=== PATIENT | female | born 1945 | race Caucasian/White ===

== ENCOUNTER 2022-07-25 15:32 | Inpatient (IN) | payer MEDICARE ==
[~2022-07-25] VITALS: Ht 167.6 cm; Wt 56.9 kg
[2022-07-25 17:20] LABS: BASOPHILS % (AUTO) 0.3 % (0.0-2.0); EOSINOPHILS % (AUTO) 1.1 % (1.0-6.0); HEMATOCRIT 44.8 % (36-46); HEMOGLOBIN 14.8 g/dL (12.0-16.0); LYMPHOCYTES # (AUTO) 0.9 K/uL (1.0-4.8); LYMPHOCYTES % (AUTO) 22.9 % (22.0-44.0); MEAN CORPUSCULAR HEMOGLOBIN 31.2 pg (26.0-34.0); MEAN CORPUSCULAR VOLUME 95 fL (80-100); MONOCYTES # (AUTO) 0.3 K/uL (0.1-1.0); MONOCYTES % (AUTO) 8.5 % (2.0-9.0); NEUTROPHILS # (AUTO) 2.7 K/uL (1.8-7.7); NEUTROPHILS % (AUTO) 67.2 % (40.0-70.0); PLATELET COUNT (AUTO) 149 K/uL (150-450); RED BLOOD CELL COUNT(AUTO) 4.73 MIL/uL (4.00-5.20); RED CELL DISTRIBUTION WIDTH 13.2 % (11.5-14.5)
[2022-07-25 17:39] LABS: ANION GAP 7 mmol/L (8-16); CALCIUM, TOTAL 8.8 mg/dL (8.8-10.5); CARBON DIOXIDE 29 mmol/L (22-29); CHLORIDE 106 mmol/L (98-107); CREATININE 0.72 mg/dL (0.60-1.30); GLUCOSE,RANDOM 108 mg/dL (70-110); POTASSIUM 4.1 mmol/L (3.5-5.1); SODIUM SERUM 142 mmol/L (136-145); UREA NITROGEN, BLOOD 36 mg/dL (7-18)
[2022-07-25 17:40] LABS: GLOMERULAR FILTR. RATE CALC > 60 mL/min (>60)
[2022-07-25 17:42] LABS: B-TYPE NATRIURETIC PEPTIDE 72 pg/mL (0-100)
[2022-07-25 17:45] LABS: ALANINE AMINOTRANSFERASE 25 U/L (12-78); ALBUMIN 3.8 g/dL (3.4-5.0); ALKALINE PHOSPHATASE 119 U/L (46-116); ASPARTATE AMINOTRANSFERASE 21 U/L (15-37); BILIRUBIN,TOTAL 0.1 mg/dL (0.1-1.0); LIPASE 520 U/L (73-393); TOTAL PROTEIN, SERUM 7.1 g/dL (6.4-8.2)
[2022-07-25] MEDS ORDERED: MAGNESIUM HYDROXIDE SUSPENSION 30 ML UDCUP PO PRN (19:15)
[2022-07-25] MEDS ORDERED: ACETAMINOPHEN 325 MG TABLET PO PRN (19:15)
[2022-07-25] MEDS ORDERED: ONDANSETRON HCL 4 MG/2 ML VIAL IVP PRN (19:15)
[2022-07-25] MEDS ORDERED: NITROGLYCERIN 2% (1 GM=INCH) OINTMENT PACKET TP ONE (19:45)
[2022-07-25] MEDS: METOPROLOL TARTRATE 25 MG TABLET PO SCH (21:00)
[2022-07-25 21:58] VITALS: BP 160/81
[2022-07-25] MEDS: HEPARIN SODIUM,PORCINE 5,000 UNITS/ML VIAL SQ SCH (23:33)
[2022-07-26 00:03] VITALS: BP 145/73
[2022-07-26 05:06] VITALS: BP 129/88
[2022-07-26 07:11] VITALS: BP 155/70
[2022-07-26] MEDS: HEPARIN SODIUM,PORCINE 5,000 UNITS/ML VIAL SQ SCH (08:00)
[2022-07-26] MEDS: METOPROLOL TARTRATE 25 MG TABLET PO SCH (09:00)
[2022-07-26] MEDS ORDERED: FAMOTIDINE 20 MG TABLET PO SCH (09:00)
[2022-07-26] MEDS ORDERED: AMLO-257 PO (09:45)
[2022-07-26] MEDS ORDERED: FAMO20 PO (09:45)
[2022-07-26 11:29] VITALS: BP 138/78
[2022-07-26 16:15] VITALS: BP 145/95
== END 2022-07-26 11:25 | disposition home or self-care (01) | DRG 391 ==
LOC: EMS 15:48 → 5S 19:39
PROVIDERS: ADMIT Internal Medicine; ATTEND Internal Medicine
DX: K21.9 Gastro-esophageal reflux disease without esophagitis (principal); K85.90 Acute pancreatitis without necrosis or infection, unspecified; K86.2 Cyst of pancreas; Z20.822 Contact with and (suspected) exposure to COVID-19; I34.1 Nonrheumatic mitral (valve) prolapse; I10 Essential (primary) hypertension; Z79.899 Other long term (current) drug therapy; Z88.8 Allergy status to other drugs, medicaments and biological substances
CPT/HCPCS: 71045; 74176; 80053; 83690; 83880; 84484; 85025; 93005; 93306; 99285; G0378; J1644; 36415-L1; 36415-TC